=== PATIENT | male | born 1965 ===

== ENCOUNTER 2018-02-05 12:19 | Emergency (ER) | payer SELFPAY ==
[2018-02-05 12:19] VITALS: BMI 26.4
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
[2018-02-05 16:07] VITALS: BP 129/68; RESP 18; TEMP 98.1
--- NOTE | 2018-02-05 21:04 | CARD ---
APPROVED REPORT Date of service: 02/05/2018 EKG Measurement Heart [id number] <Conclusion> Normal sinus rhythm Moderate voltage criteria for LVH, may be normal variant Borderline ECG
[2018-02-07 12:16] VITALS: PULSE 73; O2SAT 97
== END 2018-02-05 15:45 | disposition home or self-care (01) ==
LOC: H.ER 12:19
DX: S20.219A Contusion of unspecified front wall of thorax, initial encounter (principal); V43.62XA Car passenger injured in collision with other type car in traffic accident, initial encounter; Y92.410 Unspecified street and highway as the place of occurrence of the external cause; I10 Essential (primary) hypertension
CPT/HCPCS: 71046; 82948; 93005; 96372; 99283; J1885